=== PATIENT | female | born 1995 | race Hispanic/Latino ===

== ENCOUNTER 2016-11-22 15:41 | Outpatient (CLI) | payer MEDICAID ==
--- NOTE | 2016-11-22 16:48 | ULT ---
OB ULTRASOUND: HISTORY: Late care. FINDINGS: A single live intrauterine gestation is seen with measurements corresponding to an estimated gestati onal age of 31 weeks 4 days and HEENA at 01/20/17. The estimated weight measures 1725 grams or 3 pounds 13 ounces. measurements are as follows: BPD 7.73 cm, 31 weeks 0 days HC 29.5 cm, 32 weeks 4 days AC 26.48 cm, 30 weeks 4 days FL 6.14 cm, 31 weeks 6 days heart rate measures 136 b.p.m. The JESSICA measures 11.7 cm. Placenta is posteriorly located wit hout evidence of placenta previa. A 3-vessel cord, cord insertion, kidneys, bladder, stomach, 4-chamber heart, spine, upper and lower extremities are visualized. The lateral ventricles, cerebellum, and lips/nose are not satisfa ctorily seen. The visualized anatomy demonstrates no significant abnormalities. IMPRESSION: Single live intrauterine of 31 weeks 4 days estimated gestational age and estimated date o f delivery at 01/20/17. POS: DINESH
== END 2016-11-22 15:42 | disposition home or self-care (01) ==
LOC: SCSULT 15:41
PROVIDERS: ATTEND Nurse Practitioner
DX: O09.30 Supervision of pregnancy with insufficient antenatal care, unspecified trimester (principal); Z3A.31 31 weeks gestation of pregnancy
CPT/HCPCS: 76805